=== PATIENT | female | born 1995 | race Two or more races ===

== ENCOUNTER 2018-05-07 23:41 | Emergency (ER) | payer SELFPAY ==
[2018-05-08 02:18] LABS: ABSOLUTE BASOPHILS # (AUTO) 0.1 10^3/uL (0.0-0.2); ABSOLUTE EOSINOPHILS # (AUTO) 0.2 10^3/uL (0.0-0.6); ABSOLUTE LYMPHOCYTES (AUTO) 2.2 10^3/uL (0.5-4.7); ABSOLUTE MONOCYTES (AUTO) 0.6 10^3/uL (0.1-1.4); ABSOLUTE NEUT (AUTO) 7.5 10^3/uL (1.7-8.2); BASOPHILS % (AUTO) 0.6 % (0-2); EOSINOPHILS % (AUTO) 1.4 % (0-6); HEMATOCRIT 41.6 % (36.0-47.0); HEMOGLOBIN 14.9 g/dL (12.0-15.5); LYMPHOCYTES % (AUTO) 21.2 % (13-45); MEAN CORPUSCULAR HEMOGLOBIN 29.8 pg (27.0-33.4); MEAN CORPUSCULAR HGB CONC 35.9 g/dL (32.0-36.0); MEAN CORPUSCULAR VOLUME 83 fl (80-97); PLATELET COUNT 294 10^3/uL (150-450); RED BLOOD COUNT 5.02 10^6/uL (3.72-5.28); SEGMENTED NEUTROPHILS % (AUTO) 70.8 % (42-78); TOTAL CELLS COUNTED % (AUTO) 100 %; WHITE BLOOD COUNT 10.6 10^3/uL (4.0-10.5)
--- NOTE | 2018-05-08 03:11 | ER Document Report ---
ED General - General Chief Complaint: Abdominal Pain Stated Complaint: ABDOMINAL PAIN Time Seen by Provider: 05/08/18 02:57 Notes: Patient is a 22-year-old female without chronic medical problems who presents with 3.5 weeks of vaginal bleeding. She states that she is going through approximately 3-4 pads daily. Describes associated mild, cramping, lower abdominal discomfort. States that she has been trying Tylenol with minimal to no improvement. Does not currently use any form of control. States that she has a long-standing history of irregular and heavy periods in the past. Has not seen her [facility] regarding today's concerns. Denies lightheadedness or syncope. No constitutional symptoms or fever. TRAVEL OUTSIDE OF THE [place] IN LAST 30 DAYS: No - Related Data Allergies/Adverse Reactions: ibuprofen Adverse Reaction (Verified 05/08/18 01:07) Penicillins Adverse Reaction (Verified 05/08/18 01:07) Past Medical History - General Information source: Patient - Social History Smoking Status: Never Smoker Frequency of alcohol use: None Drug Abuse: None Lives with: Spouse/Significant other Family History: Reviewed & Not Pertinent Review of Systems - Review of Systems Notes: Constitutional: Negative for fever. HENT: Negative for sore throat. Eyes: Negative for visual changes. Cardiovascular: Negative for chest pain. Respiratory: Negative for shortness of breath. Gastrointestinal: Positive for lower abdominal cramping Genitourinary: Positive for vaginal bleeding Musculoskeletal: Negative for back pain. Skin: Negative for rash. Neurological: Negative for headaches, weakness or numbness. 10 point ROS negative except as marked above and in HPI. Physical Exam - Vital signs Interpretation: Normal Notes: PHYSICAL EXAMINATION: GENERAL: Well-appearing, well-nourished and in no acute distress. HEAD: Atraumatic, normocephalic. EYES: Pupils equal round and reactive to light, extraocular movements intact, sclera anicteric, conjunctiva are normal. ENT: nares patent, oropharynx clear without exudates. Moist mucous membranes. NECK: Normal range of motion, supple without lymphadenopathy LUNGS: Breath sounds clear to auscultation bilaterally and equal. No wheezes rales or rhonchi. HEART: Regular rate and rhythm without murmurs ABDOMEN: Soft, nontender, normoactive bowel sounds. No guarding, no rebound. No masses appreciated. EXTREMITIES: Normal range of motion, no pitting or edema. No cyanosis. NEUROLOGICAL: No focal neurological deficits. Moves all extremities spontaneously and on command. PSYCH: Normal mood, normal affect. SKIN: Warm, Dry, normal turgor, no rashes or lesions noted. Course - Re-evaluation Re-evalutation: 05/08/18 03:10 Presentation is most consistent with dysfunctional uterine bleeding and otherwise well-appearing patient. Her hemoglobin was within normal limits. She is not . No tachycardia or hypotension. Examination is otherwise unremarkable. She denies bleeding through more than 2 pads an hour at any point in time. No indication for ultrasound at this time based on benign exam, vitals and laboratories. No active bleeding at this time. Patient will be started on oral control pills to help discontinue the bleeding. She has been encouraged to follow-up with [facility]. At this time will discharge with return precautions and follow-up recommendations. Verbal discharge instructions given a the bedside and opportunity for questions given. Medication warnings reviewed. Patient is in agreement with this plan and has verbalized understanding of return precautions and the need for primary care follow-up in the next 24-72 hours. - Laboratory Result Diagrams: 05/08/18 02:00 Laboratory results interpreted by me: 05/08/18 02:00 WBC 10.6 H Discharge - Discharge Clinical Impression: Dysfunctional uterine bleeding Condition: Good Disposition: HOME, SELF-CARE Additional Instructions: You were seen today for dysfunctional uterine bleeding. This is when you have vaginal bleeding and abdominal cramping off of your normal menstrual cycle. You have been started on control pills to help regulate your cycle and control your symptoms. You need to follow-up with [facility] or your primary care physician the next 1-3 days. Return immediately if you worsening pain, you began bleeding through more than 2 pads per hour for more than 3 hours, you pass out, have persistent vomiting, develop a fever greater than 100.4F, or any other symptoms that are concerning to you. Prescriptions: Norgestimate-Ethinyl Estradiol [Sprintec 28 Day Tablet] 1 each PO ASDIR PRN #2 packet PRN Reason:
[2018-05-08 03:13] LABS: APPEARANCE,URINE TURBID; BILIRUBIN,URINE NEGATIVE (NEGATIVE); COLOR,URINE RED; GLUCOSE, URINE 50 mg/dL (NEGATIVE); KETONES,URINE TRACE mg/dL (NEGATIVE); LEUKOCYTE ESTERASE,URINE NEGATIVE (NEGATIVE); NITRITE,URINE NEGATIVE (NEGATIVE); PROTEIN,URINE 100 mg/dL (NEGATIVE); URINE SPECIFIC GRAVITY 1.029; UROBILINOGEN,URINE NEGATIVE mg/dL (<2.0)
[2018-05-08 04:35] VITALS: BP 130/64
== END 2018-05-08 04:33 | disposition home or self-care (01) ==
LOC: ER 23:41
DX: N93.8 Other specified abnormal uterine and vaginal bleeding (principal); R10.30 Lower abdominal pain, unspecified
CPT/HCPCS: 36415; 81001; 81025; 85025; 86900; 86901; 99284

== ENCOUNTER 2018-06-20 19:41 | Emergency (ER) | payer MEDICAID ==
[2018-06-20 20:52] LABS: ABSOLUTE BASOPHILS # (AUTO) 0.1 10^3/uL (0.0-0.2); ABSOLUTE EOSINOPHILS # (AUTO) 0.2 10^3/uL (0.0-0.6); ABSOLUTE LYMPHOCYTES (AUTO) 2.2 10^3/uL (0.5-4.7); ABSOLUTE MONOCYTES (AUTO) 0.6 10^3/uL (0.1-1.4); ABSOLUTE NEUT (AUTO) 6.5 10^3/uL (1.7-8.2); BASOPHILS % (AUTO) 0.7 % (0-2); EOSINOPHILS % (AUTO) 1.7 % (0-6); HEMATOCRIT 41.4 % (36.0-47.0); HEMOGLOBIN 14.6 g/dL (12.0-15.5); LYMPHOCYTES % (AUTO) 23.1 % (13-45); MEAN CORPUSCULAR HGB CONC 35.2 g/dL (32.0-36.0); MEAN CORPUSCULAR VOLUME 82 fl (80-97); PLATELET COUNT 302 10^3/uL (150-450); RED BLOOD COUNT 5.02 10^6/uL (3.72-5.28); SEGMENTED NEUTROPHILS % (AUTO) 68.5 % (42-78); TOTAL CELLS COUNTED % (AUTO) 100 %; WHITE BLOOD COUNT 9.5 10^3/uL (4.0-10.5)
[2018-06-20 21:01] LABS: APPEARANCE,URINE SLIGHTLY-CLOUDY; BILIRUBIN,URINE NEGATIVE (NEGATIVE); COLOR,URINE YELLOW; GLUCOSE, URINE NEGATIVE (NEGATIVE); KETONES,URINE NEGATIVE (NEGATIVE); LEUKOCYTE ESTERASE,URINE SMALL (NEGATIVE); NITRITE,URINE NEGATIVE (NEGATIVE); PROTEIN,URINE NEGATIVE (NEGATIVE); URINE SPECIFIC GRAVITY 1.023
[2018-06-20 21:02] LABS: ALANINE AMINOTRANSFERASE 39 U/L (9-52); ALBUMIN 4.6 g/dL (3.5-5.0); ALKALINE PHOSPHATASE 78 U/L (38-126); ANION GAP 10 (5-19); ASPARTATE AMINO TRANSFERASE 26 U/L (14-36); BILIRUBIN,DIRECT 0.1 mg/dL (0.0-0.4); BILIRUBIN,TOTAL 1.2 mg/dL (0.2-1.3); BLOOD UREA NITROGEN 15 mg/dL (7-20); CARBON DIOXIDE 30 mmol/L (22-30); CHLORIDE 101 mmol/L (98-107); GLUCOSE 85 mg/dL (75-110); LIPASE 83.4 U/L (23-300); POTASSIUM 4.3 mmol/L (3.6-5.0); SODIUM 140.5 mmol/L (137-145); TOTAL PROTEIN 7.9 g/dL (6.3-8.2)
[2018-06-20] MEDS ORDERED: ONDANSETRON HCL INJ/PF 4 MG/2 ML SDV IV ONE (21:28)
[2018-06-20] MEDS ORDERED: FENTANYL CITRATE INJ/PF 100 MCG/2 ML AMPUL IV ONE (21:28)
[2018-06-20 22:00] LABS: T.VAGINALIS (WET MOUNT) TRICHOMONAS SEEN; YEAST (WET MOUNT) NO YEAST SEEN
[2018-06-20 22:01] LABS: BACTERIA (WET MOUNT) 4+ BACTERIA SEEN; RBCS (WET MOUNT) 1+ RBCS SEEN; WBCS (WET MOUNT) 4+ WBCS SEEN
--- NOTE | 2018-06-20 22:59 | RADIOLOGY REPORT (SQ) ---
EXAM DESCRIPTION: US TRANSVAGINAL COMPLETED DATE/TME: 06/20/2018 21:42 CLINICAL HISTORY: 23 years, Female, BL pelvic pain, df bleeding COMPARISON: None. TECHNIQUE: Transverse and longitudinal transvaginal sonographic images of the pelvis LIMITATIONS: None. FINDINGS: The uterus measures 8.4 x 3.8 x 4.3 cm. The endometrium measures 9 mm in thickness. Myometrium homogenous. Right ovary measures 4 x 3 x 3 cm, the left 3 x 2 x 3 cm. No adnexal cyst or mass. Normal flow to each ovary. No free fluid IMPRESSION: Negative exam copyright 2010 [employer]- All Rights Reserved
[2018-06-20 23:22] LABS: CHLAM PCR DETECTED (NOT DETECT); GON PCR NOT DETECTED (NOT DETECT)
[2018-06-20] MEDS ORDERED: CEFTRIAXONE INJ 250 MG VIAL IM ONE (23:59)
[2018-06-20] MEDS ORDERED: AZITHROMYCIN 250 MG TABLET PO ONE (23:59)
[2018-06-21] MEDS ORDERED: METRONIDAZOLE 500 MG TABLET PO ONE
[2018-06-21] MEDS ORDERED: LIDOCAINE 1% INJ-PF (10 MG/ML) 30 ML SDV ONE (00:03)
--- NOTE | 2018-06-21 00:06 | ER Document Report ---
ED General - General Chief Complaint: Vaginal Bleeding Stated Complaint: NAUSEA,VOMITING,ABDOMINAL PAIN,VAGINAL BLEEDING Time Seen by Provider: 06/20/18 20:47 Primary Care Provider: [facility] [Provider Group] - Follow up as needed Notes: Patient is a 23-year-old female presents to the emergency department for generalized vaginal bleeding for the last week. Patient states she was at this facility 3 weeks ago for generalized vaginal bleeding and was given a prescription for control. States she has not filled the prescription because she does not have insurance. Patient states the bleeding had since ceased but has restarted within the last week. States she has gone through 1 pad an hour for the last 24 hours. Patient is also complaining of some generalized nausea and bilateral lower abdominal pain and cramping. Patient states she did take an at-home test 4 days ago which was positive. States she then took another one yesterday and it was negative. Patient states her vaginal bleeding has started prior to her taking the at home test. Past medical history: Asthma Medications: None Allergies: Penicillin TRAVEL OUTSIDE OF THE [place] IN LAST 30 DAYS: No - Related Data Allergies/Adverse Reactions: ibuprofen Adverse Reaction (Verified 05/08/18 01:07) Penicillins Adverse Reaction (Verified 05/08/18 01:07) Past Medical History - General Information source: Patient - Social History Smoking Status: Never Smoker Chew tobacco use (# tins/day): No Frequency of alcohol use: None Drug Abuse: None Family History: Reviewed & Not Pertinent Patient has suicidal ideation: No Patient has homicidal ideation: No Renal/ Medical History: Denies: Hx Peritoneal Dialysis Review of Systems - Review of Systems Constitutional: No symptoms reported EENT: No symptoms reported Cardiovascular: No symptoms reported Respiratory: No symptoms reported Gastrointestinal: See HPI Genitourinary: denies: Burning, Dysuria, Discharge, Urgency Female Genitourinary: See HPI Musculoskeletal: No symptoms reported Skin: No symptoms reported Hematologic/Lymphatic: See HPI Neurological/Psychological: No symptoms reported Physical Exam - Vital signs Vitals: Temp Pulse Resp BP Pulse Ox 98.3 F 76 17 141/59 H 100 06/20/18 20:02 06/20/18 20:02 06/20/18 20:02 06/20/18 20:02 06/20/18 20:02 - Notes Notes: GENERAL: Alert, interacts well. No acute distress. HEAD: Normocephalic, atraumatic. EYES: Pupils equal, round, and reactive to light. Extraocular movements intact. ENT: Oral mucosa moist, tongue midline. NECK: Full range of motion. Supple. Trachea midline. LUNGS: Clear to auscultation bilaterally, no wheezes, rales, or rhonchi. No respiratory distress. HEART: Regular rate and rhythm. No murmur ABDOMEN: Soft, Non-distended. Bowel sounds present in all 4 quadrants. Generalized bilateral pelvic pain noted. EXTREMITIES: Moves all 4 extremities spontaneously. No edema, normal radial and dorsalis pedis pulses bilaterally. No cyanosis. BACK: no cervical, thoracic, lumbar midline tenderness. No saddle anesthesia, normal distal neurovascular exam. No CVA tenderness noted bilaterally NEUROLOGICAL: Alert and oriented x3. Normal speech. cranial nerves II through XII grossly intact PSYCH: Normal affect, normal mood. SKIN: Warm, dry, normal turgor. No rashes or lesions noted. 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 Very scant amount of brown discharge noted in the cul-de-sac, no cervical motion tenderness noted, no adnexal tenderness noted bilaterally. Course - Re-evaluation Re-evalutation: Patient's labs revealed no abnormalities with her CBC or CMP. Patient's urine was sent for culture, patient's denying any dysuria or urinary frequency. Patient continues to deny any vaginal discharge besides the intermittent bleeding. Patient's labs revealed bacterial vaginosis, trichomoniasis, chlamydia. Patient was treated with ceftriaxone and azithromycin in the emergency room. Prescription for Flagyl was given. Discussed need for prophylactic treatment for all of her sexual partners as patient's significant other was in the room with her. Patient has no cervical motion tenderness, no adnexal tenderness noted b ilaterally, patient is afebrile, non-tachycardic, stable for discharge. - Vital Signs Vital signs: Temp Pulse Resp BP Pulse Ox 98.7 F 70 18 128/65 H 100 06/21/18 00:49 06/21/18 00:49 06/21/18 00:49 06/21/18 00:49 06/21/18 00:49 - Laboratory Result Diagrams: 06/20/18 20:35 06/20/18 20:35 Laboratory results interpreted by me: 06/20/18 06/20/18 20:35 21:40 Urine Blood MODERATE H Urine Urobilinogen 4.0 H Ur Leukocyte Esterase SMALL H Chlamydia DNA (PCR) DETECTED H Discharge - Discharge Clinical Impression: Chlamydia, Bacterial vaginitis, Vaginal bleeding, Trichomonas infection Condition: Stable Disposition: HOME, SELF-CARE Instructions: Chlamydia ([facility]), Vaginal Bleeding ([facility]), Vaginosis, Bacterial ([facility]), Trichomonas Infection ([facility]) Additional Instructions: As we discussed you have been seen and treated in the emergency department for chlamydia, trichomonas and bacterial vaginosis. Likely this is the cause of your vaginal bleeding. Should you continue with vaginal bleeding have any lightheadedness, dizziness, weakness or any other concerning symptoms he should immediately return to the emergency room. Please follow-up at [facility] for continued care. Prescriptions: Metronidazole [Flagyl 500 mg Tablet] 500 mg PO BID #14 tablet Ondansetron [Zofran Odt 4 mg Tablet] 1 - 2 tab PO Q4H PRN #15 tab.rapdis PRN Reason: For Nausea/Vomiting Forms: Return to Work Referrals: [facility] [Provider Group] - Follow up as needed
[2018-06-21 00:50] VITALS: BP 128/65
== END 2018-06-21 00:49 | disposition home or self-care (01) ==
LOC: ER 19:41
DX: N93.9 Abnormal uterine and vaginal bleeding, unspecified (principal); T38.4X6A Underdosing of oral contraceptives, initial encounter; Z91.120 Patient's intentional underdosing of medication regimen due to financial hardship; Z91.14 Patient's other noncompliance with medication regimen; N76.0 Acute vaginitis; B96.89 Other specified bacterial agents as the cause of diseases classified elsewhere; A74.9 Chlamydial infection, unspecified; A59.9 Trichomoniasis, unspecified; R11.0 Nausea; R10.2 Pelvic and perineal pain; J45.909 Unspecified asthma, uncomplicated
CPT/HCPCS: 99284; 96372; 96374; 96375; 86900; 86901; 36415; 87086; 87210; 84702; 83690; 85025; 80053; 81001; 87491; 87591; 76830; 93976; J3010; J3490; J2405; J0696